=== PATIENT | female | born 1980 | race Caucasian/White ===

== ENCOUNTER 2020-12-23 08:56 | Inpatient (IN) ==
[~2020-12-23 08:56] MED LIST: INDOMETHACIN SUPP 50 MG SUPP RECTAL ONE
[2020-12-23] MEDS ORDERED: INDOMETHACIN SUPP 50 MG SUPP RECTAL ONE (09:29)
[2020-12-23] MEDS ORDERED: LACTATED RINGERS 1,000 ML IV SCH (09:30)
[2020-12-23 10:31] LABS: Basophils % 0.5 % (0.0-0.8); Eosinophils # 0.3 10*3/uL (0.0-0.87); Eosinophils % 3.2 % (0.00-10.9); Hematocrit 40.9 VOL% (35.7-47.0); Hemoglobin 12.6 GM/DL (12.0-16.0); Immature Granulocytes % 3.3 %; Immature Granulocytes Absolute 0.26 #; Lymphocytes # 1.5 10*3/uL (1.4-4.0); Lymphocytes % 18.9 % (21.3-54.2); Mean Corpuscular HGB Conc 30.8 GM/DL (32-36); Mean Platelet Volume 10.8 FL (9.6-12.0); Monocytes % 4.6 % (1.7-12.7); Neutrophils % 69.5 % (38.7-73.9); Platelet Count 287 T/CUMM (130-400); Red Cell Distribution Width 16.5 % (9.3-17.3); White Blood Count 7.8 T/CUMM (4-12)
[2020-12-23 10:40] LABS: PT Patient Result 11.3 SECS (10.5-12.0)
[2020-12-23] MEDS ORDERED: MORPHINE 2 MG/1 ML SYRINGE IV ONE (14:10)
[2020-12-23] MEDS ORDERED: hydrALAZINE 20 MG/1 ML VIAL IV PRN (14:25)
[2020-12-23] MEDS ORDERED: GLUCAGON 1 MG VIAL IM PRN (14:25)
[2020-12-23] MEDS ORDERED: DEXTROSE 50% 25 GM/50 ML VIAL IV PRN (14:25)
[2020-12-23] MEDS ORDERED: ACETAMINOPHEN 325 MG TABLET PO PRN (14:25)
[2020-12-23] MEDS: ONDANSETRON 4 MG/2 ML VIAL IV PRN (14:27)
[2020-12-23 15:41] LABS: Albumin 2.7 G/DL (3.4-5.0); Bilirubin,Total 1.2 MG/DL (0.20-1.00); Osmolality,Calculated 272.8 MOS/KG (273-304); Potassium 3.8 MMOL/L (3.5-5.1); Total Protein 7.2 G/DL (6.4-8.2)
[2020-12-23] MEDS: ENOXAPARIN 80 MG/0.8 ML SYRINGE SUBCUT SCH (16:13)
[2020-12-23] MEDS: PANTOPRAZOLE 40 MG VIAL IV SCH (16:13)
[2020-12-23] MEDS: CIPROFLOXACIN INJ 400 MG/200 ML PREMIX IV SCH (16:14)
[2020-12-23] MEDS ORDERED: ONDANSETRON 4 MG/2 ML VIAL IV PRN (16:30)
[2020-12-23] MEDS: SODIUM CHLORIDE 0.9% 1,000 ML IV SCH (17:30)
[2020-12-23] MEDS: metroNIDAZOLE INJ 500 MG in PREMIX 1 EACH IV SCH (17:30)
[2020-12-23] MEDS: MORPHINE 2 MG/1 ML SYRINGE IV PRN ×2 (18:00→22:00)
[2020-12-24 01:42] LABS: Basophils # 0.1 10*3/uL (0.0-0.2); Basophils % 0.9 % (0.0-0.8); Eosinophils # 0.2 10*3/uL (0.0-0.87); Hemoglobin 11.4 GM/DL (12.0-16.0); Immature Granulocytes % 4.2 %; Immature Granulocytes Absolute 0.24 #; Lymphocytes # 1.8 10*3/uL (1.4-4.0); Mean Corpuscular HGB Conc 31.7 GM/DL (32-36); Mean Corpuscular Volume 86.5 FL (87-102); Mean Platelet Volume 11.1 FL (9.6-12.0); Monocytes % 7.7 % (1.7-12.7); Neutrophils % 52.2 % (38.7-73.9); Platelet Count 251 T/CUMM (130-400); Red Blood Count 4.16 MC/CUMM (3.8-5.5); Red Cell Distribution Width 16.7 % (9.3-17.3); White Blood Count 5.8 T/CUMM (4-12)
[2020-12-24] MEDS: MORPHINE 2 MG/1 ML SYRINGE IV PRN ×3 (01:55→09:15)
[2020-12-24 01:56] LABS: PT Patient Result 11.7 SECS (10.5-12.0); Partial Thromboplastin Time 26.9 SECS (23.9-33.8)
[2020-12-24 02:11] LABS: Calcium 8.5 MG/DL (8.5-10.1); Osmolality,Calculated 270.8 MOS/KG (273-304); Potassium 3.8 MMOL/L (3.5-5.1); Thyroid Stimulating Hormone 2.46 uIU/ml (0.358-3.74)
[2020-12-24] MEDS: metroNIDAZOLE INJ 500 MG in PREMIX 1 EACH IV SCH ×4 (02:15→23:11)
[2020-12-24] MEDS: ENOXAPARIN 80 MG/0.8 ML SYRINGE SUBCUT SCH ×2 (03:53→21:29)
[2020-12-24] MEDS: CIPROFLOXACIN INJ 400 MG/200 ML PREMIX IV SCH (05:54)
[2020-12-24] MEDS ORDERED: LACTATED RINGERS 1,000 ML IV SCH (06:00)
[2020-12-24] MEDS ORDERED: MAGNESIUM SULF RIDER 2 GM/50 ML PREMIX IV PRN (06:55)
[2020-12-24] MEDS ORDERED: POTASSIUM CHLORIDE 20 MEQ TABLET PO PRN (06:55)
[2020-12-24] MEDS ORDERED: MAGNESIUM SULF RIDER 4 GM/100 ML PREMIX IV PRN (06:55)
[2020-12-24] MEDS ORDERED: INDOMETHACIN SUPP 50 MG SUPP RECTAL ONE ×3 (07:30→17:00)
[2020-12-24 08:42] LABS: Ferritin 199.9 ng/ml (8-252)
[2020-12-24] MEDS: SODIUM CHLORIDE 0.9% 1,000 ML IV SCH ×3 (09:15→22:30)
[2020-12-24] MEDS: PANTOPRAZOLE 40 MG VIAL IV SCH (09:23)
[2020-12-24] MEDS: methylPREDNISolone SOD SUC 40 MG/1 ML VIAL IV SCH ×2 (09:23→17:50)
[2020-12-24] MEDS: ONDANSETRON 4 MG/2 ML VIAL IV PRN (09:23)
[2020-12-24] MEDS: cefTRIAXone 1,000 MG in SODIUM CHLORIDE 0.9% 100 ML IV SCH (10:30)
[2020-12-24] MEDS: AZITHROMYCIN INJ 500 MG in SODIUM CHLORIDE 0.9% 250 ML IV SCH (11:30)
[2020-12-24] MEDS ORDERED: MIDAZOLAM 10 MG/2 ML VIAL ONE (13:26)
[2020-12-24] MEDS ORDERED: fentaNYL 100 MCG/2 ML VIAL ONE (13:26)
[2020-12-24] MEDS ORDERED: PHENYLEPHRINE DRIP 20 MG/250 ML PREMIX IV ONE (13:27)
[2020-12-24] MEDS ORDERED: propofoL 200 MG/20 ML VIAL IV ONE ×2 (15:39→15:47)
[2020-12-24] MEDS ORDERED: GLYCOPYRROLATE 0.4 MG/2 ML VIAL ONE (15:47)
[2020-12-24] MEDS ORDERED: PHENYLEPHRINE 1 MG/10 ML SYRINGE IV ONE (15:47)
[2020-12-24] MEDS ORDERED: ESMOLOL 100 MG/10 ML VIAL IV ONE (15:47)
[2020-12-24] MEDS ORDERED: LIDOCAINE 2% 5 ML VIAL ONE (15:47)
[2020-12-24] MEDS ORDERED: ROCURONIUM 50 MG/5 ML VIAL IV ONE (15:48)
[2020-12-24] MEDS ORDERED: LORazepam 2 MG/1 ML VIAL IV ONE (16:06)
[2020-12-24] MEDS ORDERED: LORazepam 2 MG/1 ML VIAL ONE (16:11)
[2020-12-24] MEDS: FAMOTIDINE 20 MG TABLET PO SCH ×2 (16:18→21:29)
[2020-12-24] MEDS: amLODIPine 10 MG TABLET PO SCH (16:18)
[2020-12-24] MEDS: IVERMECTIN 3 MG TABLET PO SCH (16:18)
[2020-12-24] MEDS: ASCORBIC ACID 500 MG TABLET PO SCH ×2 (16:18→21:29)
[2020-12-24] MEDS: CHOLECALCIFEROL 5,000 UNIT TABLET PO SCH (16:19)
[2020-12-24] MEDS: ZINC GLUCONATE 50 MG TABLET PO SCH (16:19)
[2020-12-24] MEDS: CETIRIZINE 10 MG TABLET PO SCH (16:19)
[2020-12-24 17:20] LABS: ABG Base Excess -3.4 MMOL/L (-2.5-2.5); ABG HCO3 20.6 MMOL/L (20-26); ABG Oxygen Saturation 97.9 % (95-100); ABG PCO2 34.1 MM HG (35-48); ABG PO2 110.7 MM HG (80-95); ABG TCO2 21.7 MMOL/L (23-27)
[2020-12-24] MEDS: MELATONIN 3 MG TABLET PO SCH (21:29)
[2020-12-24] MEDS ORDERED: metroNIDAZOLE INJ 500 MG/100 ML PREMIX IV SCH (21:30)
[2020-12-25] MEDS: methylPREDNISolone SOD SUC 40 MG/1 ML VIAL IV SCH ×3 (01:37→17:41)
[2020-12-25] MEDS: MORPHINE 2 MG/1 ML SYRINGE IV PRN ×5 (01:38→20:27)
[2020-12-25 04:56] LABS: ABG Base Excess -2.8 MMOL/L (-2.5-2.5); ABG HCO3 22.1 MMOL/L (20-26); ABG Oxygen Saturation 99.2 % (95-100); ABG PCO2 30.9 MM HG (35-48); ABG PH 7.433 (7.35-7.45); ABG TCO2 18.7 MMOL/L (23-27)
[2020-12-25] MEDS: metroNIDAZOLE INJ 500 MG in PREMIX 1 EACH IV SCH ×3 (05:06→22:25)
[2020-12-25 07:04] LABS: Basophils % 0.1 % (0.0-0.8); Hematocrit 34.5 VOL% (35.7-47.0); Hemoglobin 10.7 GM/DL (12.0-16.0); Immature Granulocytes % 2.2 %; Immature Granulocytes Absolute 0.24 #; Lymphocytes # 0.6 10*3/uL (1.4-4.0); Lymphocytes % 5.3 % (21.3-54.2); Mean Corpuscular Volume 88.7 FL (87-102); Neutrophils % 91.4 % (38.7-73.9); Platelet Count 345 T/CUMM (130-400); Red Blood Count 3.89 MC/CUMM (3.8-5.5); Red Cell Distribution Width 16.6 % (9.3-17.3); White Blood Count 11.1 T/CUMM (4-12)
[2020-12-25 07:24] LABS: Hypochromasia 1+; Lymphocytes 10 % (20-55); Microcytosis 1+; Ovalocytes Slight; Platelet Estimate Adequate; Segmented Neutrophils 88 % (50-85); Total Cells Counted 100
[2020-12-25 07:28] LABS: Albumin 2.5 G/DL (3.4-5.0); Bilirubin,Total 1.6 MG/DL (0.20-1.00); Calcium 8.7 MG/DL (8.5-10.1); Ferritin 211.4 ng/ml (8-252); Potassium 4.2 MMOL/L (3.5-5.1)
[2020-12-25] MEDS: ZINC GLUCONATE 50 MG TABLET PO SCH (08:42)
[2020-12-25] MEDS: CHOLECALCIFEROL 5,000 UNIT TABLET PO SCH (08:42)
[2020-12-25] MEDS: ASCORBIC ACID 500 MG TABLET PO SCH ×2 (08:42→20:28)
[2020-12-25] MEDS: AZITHROMYCIN INJ 500 MG in SODIUM CHLORIDE 0.9% 250 ML IV SCH (08:42)
[2020-12-25] MEDS: amLODIPine 10 MG TABLET PO SCH (08:42)
[2020-12-25] MEDS: PANTOPRAZOLE 40 MG VIAL IV SCH (08:43)
[2020-12-25] MEDS: ENOXAPARIN 80 MG/0.8 ML SYRINGE SUBCUT SCH ×2 (08:43→20:26)
[2020-12-25] MEDS: FAMOTIDINE 20 MG TABLET PO SCH ×2 (08:45→20:28)
[2020-12-25] MEDS: CETIRIZINE 10 MG TABLET PO SCH (08:45)
[2020-12-25] MEDS: ONDANSETRON 4 MG/2 ML VIAL IV PRN ×3 (09:28→20:40)
[2020-12-25] MEDS: IVERMECTIN 3 MG TABLET PO SCH (10:04)
[2020-12-25] MEDS: SIMETHICONE CHEW 125 MG TABLET PO PRN (10:05)
[2020-12-25] MEDS: cefTRIAXone 1,000 MG in SODIUM CHLORIDE 0.9% 100 ML IV SCH (11:03)
[2020-12-25] MEDS: SODIUM CHLORIDE 0.9% 1,000 ML IV SCH (12:50)
[2020-12-25] MEDS: MELATONIN 3 MG TABLET PO SCH (20:27)
[2020-12-26] MEDS: methylPREDNISolone SOD SUC 40 MG/1 ML VIAL IV SCH ×3 (01:25→16:29)
[2020-12-26] MEDS: SODIUM CHLORIDE 0.9% 1,000 ML IV SCH ×3 (02:26→16:39)
[2020-12-26 05:06] LABS: Basophils % 0.1 % (0.0-0.8); Hematocrit 31.4 VOL% (35.7-47.0); Hemoglobin 9.7 GM/DL (12.0-16.0); Immature Granulocytes % 1.8 %; Immature Granulocytes Absolute 0.23 #; Lymphocytes # 0.5 10*3/uL (1.4-4.0); Lymphocytes % 4.3 % (21.3-54.2); Mean Corpuscular HGB Conc 30.9 GM/DL (32-36); Mean Corpuscular Volume 87.7 FL (87-102); Mean Platelet Volume 10.4 FL (9.6-12.0); Monocytes % 0.9 % (1.7-12.7); Neutrophils % 92.9 % (38.7-73.9); Platelet Count 355 T/CUMM (130-400); Red Blood Count 3.58 MC/CUMM (3.8-5.5); Red Cell Distribution Width 16.7 % (9.3-17.3); White Blood Count 12.5 T/CUMM (4-12)
[2020-12-26 05:52] LABS: Albumin 2.7 G/DL (3.4-5.0); Bilirubin,Total 1.1 MG/DL (0.20-1.00); Calcium 8.6 MG/DL (8.5-10.1); Osmolality,Calculated 272.1 MOS/KG (273-304); Potassium 3.9 MMOL/L (3.5-5.1); Total Protein 6.6 G/DL (6.4-8.2)
[2020-12-26] MEDS: metroNIDAZOLE INJ 500 MG in PREMIX 1 EACH IV SCH ×3 (05:57→22:30)
[2020-12-26] MEDS: SIMETHICONE CHEW 125 MG TABLET PO PRN (06:03)
[2020-12-26] MEDS: ONDANSETRON 4 MG/2 ML VIAL IV PRN (08:11)
[2020-12-26] MEDS: IVERMECTIN 3 MG TABLET PO SCH (08:11)
[2020-12-26] MEDS: PANTOPRAZOLE 40 MG VIAL IV SCH (08:12)
[2020-12-26] MEDS: ENOXAPARIN 80 MG/0.8 ML SYRINGE SUBCUT SCH ×2 (08:12→21:06)
[2020-12-26] MEDS: CHOLECALCIFEROL 5,000 UNIT TABLET PO SCH (08:13)
[2020-12-26] MEDS: FAMOTIDINE 20 MG TABLET PO SCH ×2 (08:13→21:06)
[2020-12-26] MEDS: ASCORBIC ACID 500 MG TABLET PO SCH ×2 (08:13→21:06)
[2020-12-26] MEDS: amLODIPine 10 MG TABLET PO SCH (08:13)
[2020-12-26] MEDS: ZINC GLUCONATE 50 MG TABLET PO SCH (08:13)
[2020-12-26] MEDS: CETIRIZINE 10 MG TABLET PO SCH (08:14)
[2020-12-26] MEDS: AZITHROMYCIN INJ 500 MG in SODIUM CHLORIDE 0.9% 250 ML IV SCH (08:23)
[2020-12-26] MEDS: POLYETHYLENE GLYCOL POWDER 17 GM PACK PO SCH (09:23)
[2020-12-26 09:40] LABS: Hypochromasia 1+; Lymphocytes 7 % (20-55); Platelet Estimate Normal; Segmented Neutrophils 86 % (50-85); Total Cells Counted 100
[2020-12-26] MEDS: cefTRIAXone 1,000 MG in SODIUM CHLORIDE 0.9% 100 ML IV SCH (11:58)
[2020-12-26] MEDS: SUCRALFATE 1 GM/10 ML UDCUP PO SCH ×3 (13:20→21:06)
[2020-12-26] MEDS: MELATONIN 3 MG TABLET PO SCH (21:07)
[2020-12-27] MEDS: methylPREDNISolone SOD SUC 40 MG/1 ML VIAL IV SCH ×2 (01:05→12:47)
[2020-12-27] MEDS: SODIUM CHLORIDE 0.9% 1,000 ML IV SCH (02:33)
[2020-12-27] MEDS: ONDANSETRON 4 MG/2 ML VIAL IV PRN ×2 (02:50→08:09)
[2020-12-27] MEDS: MORPHINE 2 MG/1 ML SYRINGE IV PRN (02:51)
[2020-12-27] MEDS: metroNIDAZOLE INJ 500 MG in PREMIX 1 EACH IV SCH ×3 (05:30→21:08)
[2020-12-27 05:36] LABS: Basophils % 0.2 % (0.0-0.8); Hematocrit 30.5 VOL% (35.7-47.0); Hemoglobin 9.6 GM/DL (12.0-16.0); Lymphocytes # 0.6 10*3/uL (1.4-4.0); Lymphocytes % 4.3 % (21.3-54.2); Mean Corpuscular HGB Conc 31.5 GM/DL (32-36); Mean Corpuscular Volume 88.7 FL (87-102); Mean Platelet Volume 10.4 FL (9.6-12.0); Monocytes % 2.3 % (1.7-12.7); Neutrophils % 90.2 % (38.7-73.9); Platelet Count 393 T/CUMM (130-400); Red Blood Count 3.44 MC/CUMM (3.8-5.5); White Blood Count 13.1 T/CUMM (4-12)
[2020-12-27 06:00] LABS: Calcium 8.5 MG/DL (8.5-10.1); Osmolality,Calculated 273.2 MOS/KG (273-304); Potassium 3.8 MMOL/L (3.5-5.1)
[2020-12-27] MEDS: SUCRALFATE 1 GM/10 ML UDCUP PO SCH ×5 (06:15→21:07)
[2020-12-27] MEDS ORDERED: DEXTROSE 50% 25 GM/50 ML VIAL IV PRN (07:57)
[2020-12-27] MEDS ORDERED: GLUCAGON 1 MG VIAL IM PRN (07:57)
[2020-12-27] MEDS: FAMOTIDINE 20 MG TABLET PO SCH ×2 (08:06→20:59)
[2020-12-27] MEDS: ZINC GLUCONATE 50 MG TABLET PO SCH (08:06)
[2020-12-27] MEDS: amLODIPine 10 MG TABLET PO SCH (08:07)
[2020-12-27] MEDS: IVERMECTIN 3 MG TABLET PO SCH (08:07)
[2020-12-27] MEDS: CHOLECALCIFEROL 5,000 UNIT TABLET PO SCH (08:07)
[2020-12-27] MEDS: CETIRIZINE 10 MG TABLET PO SCH (08:07)
[2020-12-27] MEDS: AZITHROMYCIN INJ 500 MG in SODIUM CHLORIDE 0.9% 250 ML IV SCH (08:07)
[2020-12-27] MEDS: ASCORBIC ACID 500 MG TABLET PO SCH ×2 (08:07→20:58)
[2020-12-27] MEDS: ENOXAPARIN 80 MG/0.8 ML SYRINGE SUBCUT SCH (08:07)
[2020-12-27] MEDS: PANTOPRAZOLE 40 MG VIAL IV SCH (08:08)
[2020-12-27] MEDS: POLYETHYLENE GLYCOL POWDER 17 GM PACK PO SCH (08:10)
[2020-12-27] MEDS: METOPROLOL TARTRATE 25 MG TABLET PO SCH ×2 (08:13→20:59)
[2020-12-27 10:25] LABS: Hypochromasia 1+; Lymphocytes 7 % (20-55); Platelet Estimate Normal; Segmented Neutrophils 89 % (50-85); Total Cells Counted 100
[2020-12-27] MEDS ORDERED: TEMAZEPAM 15 MG CAPSULE PO PRN (10:38)
[2020-12-27] MEDS: cefTRIAXone 1,000 MG in SODIUM CHLORIDE 0.9% 100 ML IV SCH (11:50)
[2020-12-27] MEDS: INSULIN LISPRO 100 UNIT/ML SUBCUT SCH ×3 (12:46→22:09)
[2020-12-27] MEDS: MELATONIN 3 MG TABLET PO SCH (20:58)
[2020-12-27] MEDS: APIXABAN 5 MG TABLET PO SCH (21:03)
[2020-12-27] MEDS ORDERED: TEMAZEPAM 15 MG CAPSULE PO ONE (23:00)
[2020-12-28] MEDS: methylPREDNISolone SOD SUC 40 MG/1 ML VIAL IV SCH (01:02)
[2020-12-28] MEDS: metroNIDAZOLE INJ 500 MG in PREMIX 1 EACH IV SCH ×2 (05:17→16:03)
[2020-12-28 06:34] LABS: Basophils % 0.1 % (0.0-0.8); Hematocrit 32.8 VOL% (35.7-47.0); Immature Granulocytes % 4.3 %; Lymphocytes # 0.8 10*3/uL (1.4-4.0); Lymphocytes % 5.8 % (21.3-54.2); Mean Corpuscular HGB Conc 30.5 GM/DL (32-36); Mean Corpuscular Volume 88.6 FL (87-102); Mean Platelet Volume 10.4 FL (9.6-12.0); Monocytes % 2.9 % (1.7-12.7); NRBC # 0.02 10*3/uL; Neutrophils % 86.9 % (38.7-73.9); Platelet Count 484 T/CUMM (130-400); Red Cell Distribution Width 17.2 % (9.3-17.3); White Blood Count 13.9 T/CUMM (4-12)
[2020-12-28 06:43] LABS: Calcium 8.9 MG/DL (8.5-10.1)
[2020-12-28 07:20] LABS: Band Neutrophils 2 % (0-10); Hypochromasia Slight; Lymphocytes 4 % (20-55); Platelet Estimate Increased; Segmented Neutrophils 93 % (50-85); Total Cells Counted 100
[2020-12-28] MEDS: AZITHROMYCIN INJ 500 MG in SODIUM CHLORIDE 0.9% 250 ML IV SCH ×2 (10:14→10:51)
[2020-12-28] MEDS: ASCORBIC ACID 500 MG TABLET PO SCH (10:15)
[2020-12-28] MEDS: IVERMECTIN 3 MG TABLET PO SCH (10:15)
[2020-12-28] MEDS: APIXABAN 5 MG TABLET PO SCH (10:15)
[2020-12-28] MEDS: METOPROLOL TARTRATE 25 MG TABLET PO SCH (10:15)
[2020-12-28] MEDS: CETIRIZINE 10 MG TABLET PO SCH (10:15)
[2020-12-28] MEDS: SUCRALFATE 1 GM/10 ML UDCUP PO SCH ×2 (10:16→12:41)
[2020-12-28] MEDS: amLODIPine 10 MG TABLET PO SCH (10:16)
[2020-12-28] MEDS: INSULIN LISPRO 100 UNIT/ML SUBCUT SCH ×2 (10:16→12:41)
[2020-12-28] MEDS: PANTOPRAZOLE 40 MG VIAL IV SCH (10:51)
[2020-12-28] MEDS: POLYETHYLENE GLYCOL POWDER 17 GM PACK PO SCH (11:42)
[2020-12-28] MEDS: cefTRIAXone 1,000 MG in SODIUM CHLORIDE 0.9% 100 ML IV SCH (11:43)
[2020-12-28 12:17] VITALS: BP 125/81
[2020-12-28] MEDS: ZINC GLUCONATE 50 MG TABLET PO SCH (12:41)
[2020-12-28] MEDS: FAMOTIDINE 20 MG TABLET PO SCH (12:41)
[2020-12-28] MEDS: CHOLECALCIFEROL 5,000 UNIT TABLET PO SCH (16:03)
[2020-12-29] MEDS ORDERED: PANTOPRAZOLE 40 MG TABLET PO SCH (09:00)
[2021-01-03] MEDS ORDERED: APIXABAN 5 MG TABLET PO SCH (21:00)
== END 2020-12-28 15:49 | disposition home or self-care (01) | DRG 393 ==
LOC: N.GILAB 08:56 → N.3E 15:49 → SUATTDRO 15:49 → N.2E 19:35 → N.CC 12-24 15:44 → N.2E 12-27 19:44
PROVIDERS: ADMIT Internal Medicine Gastroenterology; ATTEND Internal Medicine
PROC: ERCPWST (ICD-10-PCS; 2020-12-24 11:05)